=== PATIENT | female | born 1985 | race African-American/Black ===

== ENCOUNTER 2021-06-08 08:00 | Emergency (ER) | payer MEDICAID ==
[~2021-06-08] VITALS: Ht 157.5 cm; Wt 59.0 kg
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
[2021-06-08] MEDS ORDERED: ASPIRIN 325 MG TABLET ONE (08:59)
[2021-06-08] MEDS ORDERED: ASPIRIN 325 MG TABLET PO ONE (09:00)
[2021-06-08 09:08] VITALS: BP 134/80
--- NOTE | 2021-06-08 09:19 | NUR ---
Patient discharged to home in stable condition. Written and verbal after care instructions given. Patient verbalizes understanding of instruction.
== END 2021-06-08 09:19 | disposition home or self-care (01) ==
LOC: ER 08:08
DX: S13.8XXA Sprain of joints and ligaments of other parts of neck, initial encounter (principal); R51.9 Headache, unspecified; I10 Essential (primary) hypertension; F32.9 Major depressive disorder, single episode, unspecified; F41.9 Anxiety disorder, unspecified; V89.2XXA Person injured in unspecified motor-vehicle accident, traffic, initial encounter; Y93.89 Activity, other specified; Y92.413 State road as the place of occurrence of the external cause; Y99.8 Other external cause status